=== PATIENT | female | born 1945 | race African-American/Black ===

== ENCOUNTER → 2020-06-09 17:52 | Outpatient (CLI) | payer OTHER, SELFPAY ==
--- NOTE | ~2020-06-09 | MM_ITS ---
EXAMINATION: MM screening [facility] HISTORY: Screening TECHNIQUE: Craniocaudal and mediolateral oblique 3-D tomosynthesis images were obtained and synthetic 2-D images were generated. CAD analysis was submitted and interpreted. COMPARISON: Comparison to multiple prior studies sequentially, with oldest reviewed study dated 01/18. BREAST PARENCHYMAL COMPOSITION: There are scattered areas of fibroglandular density. FINDINGS: There is no evidence of suspicious mass, calcification, or architectural distortion to sugg est malignancy in either breast. There has been no suspicious interval change. IMPRESSION: 1. No mammographic evidence of malignancy. 2. Recommend routine screening mammography in one year. BI-RADS Category 1: Negative Reviewed, dictated and finalized at location B. R SWITCH OPERATOR
== END ==
PROVIDERS: PCP Family Medicine Adolescent Medicine; Visit Provider Nurse Practitioner
DX: Z12.31 Encounter for screening mammogram for malignant neoplasm of breast (principal)
CPT/HCPCS: 77063; 77067

== ENCOUNTER → 2021-09-30 09:02 | Outpatient (CLI) | payer OTHER, SELFPAY ==
--- NOTE | ~2021-09-30 | MM_ITS ---
EXAMINATION: MM screening [facility] HISTORY: Screening mammogram TECHNIQUE: Craniocaudal and mediolateral oblique 3-D tomosynthesis images were obtained and synthetic 2-D images were generated. CAD analysis was submitted and interpreted. COMPARISON: 06/09/2020, 03/28/2019, 03/01/2018 BREAST PARENCHYMAL COMPOSITION: The breasts are almost entirely fatty. FINDINGS: There is no suspicious mass, calcification, or architectural distortion to suggest malignan cy in either breast. There has been no suspicious interval change. IMPRESSION: 1. No mammographic evidence of malignancy. 2. Recommend routine screening mammography in one year. BI-RADS Category 1: Negative Reviewed, dictated and finalized at location A.
--- NOTE | ~2021-09-30 | DEXA_ITS ---
Bone Density Report Name: MARISOL MORALES Age: 75 Sex: Female Ethnicity: Black Date of : 1945 Indication: postmenopausal; screening for osteoporosis; height loss; Referring Provider: Briseida, Ruma Study: Bone densitometry was performed. Exam Date: September 30, 2021 Accession number: [id number] Bone Density: Region BMD T-score Z-score Classification AP Spine (L1, L2, L3) 1.643 5.7 7.3 Normal Femoral Neck (Left) 0.935 0.8 1.4 Normal Total Hip (Left) 1.202 2.1 2.3 Normal Femoral Neck (Right) 1.068 2.0 2.4 Normal Total Hip (Right) 1.163 1.8 2.1 Normal Total Hip Mean 1.183 2.0 2.2 Normal World Health Organization criteria for BMD impression classify patients as: Normal (T-score at or above -1.0), Osteopenia (T-score between -1.0 and -2.5), or Osteoporosis (T-score at or below -2.5). 10-year Fracture Risk: FRAX not reported because: All T-scores for Spine Total, Hip Total, Femoral Neck at or above -1.0 Previous Exams: Region Exam Age BMD T-score BMD Change BMD Change Date g/cm2 vs Baseline vs Previous AP Spine(L1, L2, L3) 09/30/2021 75 1.643 5.7 0.258 0.127* 02/16/2017 71 1.515 4.5 0.130 0.086 09/09/2012 66 1.429 3.7 0.044* 0.024* 10/12/2008 62 1.405 3.5 0.020 0.020 11/16/2004 58 1.385 3.3 Total Hip(Left) 09/30/2021 75 1.202 2.1 0.067 0.018 02/16/2017 71 1.183 2.0 0.048 0.065 09/09/2012 66 1.118 1.4 -0.016 -0.003 10/12/2008 62 1.121 1.5 -0.014 -0.014 11/16/2004 58 1.135 1.6 Total Hip(Right) 09/30/2021 75 1.163 1.8 0.095 0.059* 02/16/2017 71 1.104 1.3 0.035 0.052 09/09/2012 66 1.052 0.9 -0.017 -0.046* 10/12/2008 62 1.098 1.3 0.030* 0.030* 11/16/2004 58 1.068 1.0 *Denotes significance at 95% confidence level, LSC for AP Spine = 0.022 g/cm2, LSC for Total Hip = 0.027 g/cm2 Clinical Information Provided by Patient: Has used the following medications: Vitamin D, Calcium Patient maximum height was 67.0 Menopause Age: 48 No regular weight bearing exercise Does not regularly consume dairy products Drinks caffeinated beverages Onset of menses at age 13 Number of children 3 Impression: The patient has normal bone mass. No
== END ==
PROVIDERS: PCP Family Medicine Adolescent Medicine; Visit Provider Nurse Practitioner
DX: Z12.31 Encounter for screening mammogram for malignant neoplasm of breast (principal); Z78.0 Asymptomatic menopausal state
CPT/HCPCS: 77063; 77067; 77080

== ENCOUNTER → 2022-10-04 16:27 | Outpatient (CLI) | payer OTHER, SELFPAY ==
--- NOTE | ~2022-10-04 | MM_ITS ---
EXAMINATION: MM screening [facility] HISTORY: Screening TECHNIQUE: Craniocaudal and mediolateral oblique 3-D tomosynthesis images were obtained and synthetic 2-D images were generated. CAD analysis was submitted and interpreted. COMPARISON: Comparison to multiple prior studies sequentially, with oldest reviewed study dated 01/27. BREAST PARENCHYMAL COMPOSITION: The breasts are almost entirely fatty. FINDINGS: There is no evidence of suspicious mass, calcification, or architectural distortion to sugg est malignancy in either breast. There has been no suspicious interval change. IMPRESSION: 1. No mammographic evidence of malignancy. 2. Recommend routine screening mammography in one year. BI-RADS Category 1: Negative Reviewed, dictated and finalized at location A.
== END ==
PROVIDERS: PCP Family Medicine Adolescent Medicine; Visit Provider Nurse Practitioner
DX: Z12.31 Encounter for screening mammogram for malignant neoplasm of breast (principal)
CPT/HCPCS: 77063; 77067

== ENCOUNTER 2023-05-03 04:33 | Emergency (ER) | payer OTHER, SELFPAY ==
--- NOTE | ~2023-05-03 | CT_ITS ---
EXAMINATION: CT abd pelvis lumbar wo con DATE: 05/03/2023 06:27 INDICATION: Left flank pain. TECHNIQUE: Computed tomography (CT) of the abdomen and pelvis and lumbar spine was performed without intravenous contrast. Automated exposure control and iterative reconstruction technique were employed . The dose-length product was 1449.08 mGy-cm. COMPARISON: CT abdomen and pelvis 06/05/2018 FINDINGS: CT ABDOMEN AND PELVIS: The visualized portions of the lung bases demonstrate mild atelectasis. No ple ural effusion. The heart size is normal. There are coronary artery calcifications. No pericardial eff usion. There are cysts in the liver measuring up to 16 mm. There are changes of cholecystectomy. The spleen, pancreas, adrenal glands, and kidneys are normal. There is no urolithiasis. There are bilater al inguinal hernias containing fat. There is diverticulosis of the colon. There is fat stranding jeffrey cent to the sigmoid colon. The appendix is normal. There is a small sliding hiatal hernia. There is a small volume of pelvic ascites. There are are small calcified uterine fibroids. There are no patholo gically enlarged lymph nodes. CT LUMBAR SPINE: Bone alignment is normal. Vertebral body heights are normal. There is mildly decreas ed disc height at L1-L2, L2-L3, and L3-L4 and severely decreased disc height at L4-L5 and L5-S1. The following disc levels are specifically discussed: L1-L2: The disc is bulging. There is severe bilateral facet joint osteoarthritis. There is mild bilat eral neural foraminal stenosis. There is mild central canal stenosis. L2-L3: The disc is bulging. There is severe bilateral facet joint osteoarthritis. There is moderate b ilateral neural foraminal stenosis. There is severe central canal stenosis. L3-L4: The disc is bulging. There is severe bilateral facet joint osteoarthritis. There is moderate b ilateral neural foraminal stenosis. There is moderate central canal stenosis. L4-L5: The disc is bulging. There is severe bilateral facet joint osteoarthritis. There is moderate b ilateral neural foraminal stenosis. There is severe central canal stenosis. L5-S1: The disc is bulging. There is severe bilateral facet joint osteoarthritis. There is moderate b ilateral neural foraminal stenosis. There is mild central canal stenosis. IMPRESSION: 1. No urolithiasis. 2. Mild fat stranding adjacent to the sigmoid colon, which may be epiploic appendagitis or acute dive rticulitis. 3. Small volume of ascites. 4. Severe lumbar spondylosis. Reviewed, dictated and finalized at location E. IMPRESSION: 1. No urolithiasis. 2. Mild fat stranding adjacent to the sigmoid colon, which may be epiploic appe ndagitis or acute diverticulitis. 3. Small volume of ascites. 4. Severe lumbar spondylosis.
[2023-05-03 04:42] VITALS: BP 132/78; PULSE 102; RESP 22; TEMP 37.1; O2SAT 99
--- NOTE | 2023-05-03 05:55 | ED.BACK ---
HPI - Back Pain/Injury General Chief Complaint: Back Pain/Injury <Lee Melchor DO - Last Filed: 05/03/23 07:54> Stated Complaint: back pain <Lee Melchor DO - Last Filed: 05/03/23 07:54> Time Seen by Provider: 05/03/23 04:58 <Lee Melchor DO - Last Filed: 05/03/23 07:54> Source: patient <Lee Melchor DO - Last Filed: 05/03/23 07:54> Limitations: no limitations <Lee Melchor DO - Last Filed: 05/03/23 07:54> History of Present Illness HPI Narrative: Patient is a 77-year-old female present to the emergency department complaining of left lower back pain. Patient states that she had a mechanical fall trying to get into her bed Saturday and fell onto her right side and developed left lower back pain its been aching ever since. Patient denies radiation of the pain. Patient denies history of this pain in the past. Patient notes that she does have chronic lower back pain but is on both sides and this is a different type of pain. Patient states that she has been taking her home muscle relaxers without any significant relief. Patient denies history of cancer, weight loss, fever, history of IV drug use, numbness, weakness, urinary incontinence, stool incontinence. Patient denies dysuria, hematuria, urinary frequency, urinary urgency, chest pain, shortness of breath. Patient admits to some nasal congestion for the past 4 days with a slightly productive cough. Patient has not noticed anything making her left lower back pain better or worse and notes that this is causing her to lose sleep now. <Lee Melchor DO - Last Filed: 05/03/23 07:54> Related Data Home Medications: Home Medications Medication Instructions Recorded Confirmed acyclovir 400 mg tablet 400 mg PO BID 07/24/21 07/23/22 <Lee Melchor DO - Last Filed: 05/03/23 07:54> Allergies/Adverse Reactions: Allergies Allergy/AdvReac Type Severity Reaction Status Date / Time Penicillins AdvReac Intermediate yeast Verified 07/23/22 10:33 infections TETRAMYCIN AdvReac Unknown NAUSEA AND Uncoded 07/23/22 10:33 VOMITING <Lee Melchor DO - Last Filed: 05/03/23 07:54> Review of Systems Review of Systems: A 10 system review of systems was completed on the patient and is negative except for what is stated in the HPI. Nursing and ancillary documentation was reviewed. <Lee Melchor DO - Last Filed: 05/03/23 07:54> [facility] Past Medical History Medical History: Medical History Normal colonoscopy 09/22 Repeat 10/02 <Lee Melchor DO - Last Filed: 05/03/23 07:54> Surgical History Surgical History: Surgical History H/O section History of cholecystectomy History of shoulder surgery left History of total knee arthroplasty bilateral, left 05/25 <Lee Melchor DO - Last Filed: 05/03/23 07:54> Family History Family History: Family History (Updated 07/24/21 @ 10:35 by Janice Loera MA) Sibling Diabetes mellitus Mother Hypertension <Lee Melchor DO - Last Filed: 05/03/23 07:54> Social History Social History: Social History (Updated 07/24/21 @ 10:35 by Janice Loera MA) Smoking status: Never smoker Second hand tobacco smoke exposure: No Alcohol intake: never Substance use: never Substance use type: does not use Living arrangements: with family Occupation/Education: retired Gender identity (if verbalized by the patient): Female Sexual Orientation (if Verbalized by the Patient): Straight or Heterosexual Spiritual care concerns: No Agree to blood products: Yes <Lee Melchor DO - Last Filed: 05/03/23 07:54> Comments At time of signature, I have reviewed and agree with nursing past medical, surgical, social and family history unless otherwise noted. Please see t
[2023-05-03] MEDS: traMADol HCL (*CRX) 50 MG TABLET PO (06:14)
[2023-05-03] MEDS: diazePAM (*CRX) 5 MG TABLET PO (06:14)
[2023-05-03 06:57] LABS: Basophils Percent Auto 0.3 % (0.2-1.2); Eosinophils Absolute Auto 0.1 K/mm3 (0-0.3); Hematocrit 41.8 % (37.0-47.0); Hemoglobin 12.2 g/dL (12.0-15.0); Immature Granulocyte Absolute 0.02 K/mm3 (0.00-0.031); Immature Granulocyte Percent A 0.3 % (0-0.5); Lymphocytes Absolute Auto 1.99 K/mm3 (0.9-3.2); Lymphocytes Percent Auto 31.6 % (18.3-44.2); Mean Corpuscular HGB Conc 29.2 g/dl (32-36); Mean Corpuscular Hemoglobin 25.3 pg (26-34); Mean Corpuscular Volume 86.7 fl (80-100); Mean Platelet Volume 10.5 fl (7.4-10.4); Monocytes Absolute Auto 0.5 K/mm3 (0.1-0.6); Monocytes Percent Auto 7.2 % (2.6-8.5); Neutrophils Absolute Auto 3.8 K/mm3 (1.3-6.7); Neutrophils Percent Auto 59.6 % (45.5-73.1); Platelet Count Result 224 k/mm3 (150-375); Red Blood Count 4.82 M/mm3 (4.2-5.4); White Blood Count 6.3 K/mm3 (4.5-10.0)
--- NOTE | 2023-05-03 06:58 | PC.NURSE ---
Report to BENY Han
[2023-05-03 07:06] LABS: Alanine Aminotransferase 13 U/L (6-35); Albumin Level 4.3 g/dL (3.5-5.1); Alkaline Phosphatase 107 U/L (38-126); Anion Gap 5 mmol/L (8-16); Aspartate Amino Transferase 17 U/L (14-36); Bilirubin,Total 0.5 mg/dL (0.2-1.3); Blood Urea Nitrogen 17 mg/dL (7-17); Calcium 9.1 mg/dL (8.4-10.2); Carbon Dioxide 32 mmol/L (22-30); Chloride 103 mmol/L (98-107); Creatine Kinase 81 U/L (30-135); Estimated Glomerular Filt Rate 53; Glucose 144 mg/dL (65-110); Lipase 32 U/L (23-300); Potassium 4.1 mmol/L (3.4-5.0); Sodium 140 mmol/L (137-145)
[2023-05-03 07:28] LABS: Hypochromasia 1+ (NORMAL); Platelet Estimate Adequate (Adequate)
[2023-05-03 07:29] LABS: Schistocytes None Seen (NORMAL)
[2023-05-03 07:44] LABS: Influenza A QL RT-PCR Negative (Negative); Influenza B QL RT-PCR Negative (Negative); SARS-CoV-2 RNA PCR Negative (Negative)
== END 2023-05-03 09:19 | disposition home or self-care (01) ==
PROVIDERS: Student in an Organized Health Care Education/Training Program; Emergency Provider Preventive Medicine Aerospace Medicine; PCP Family Medicine Adolescent Medicine
DX: S39.012A Strain of muscle, fascia and tendon of lower back, initial encounter (principal); K57.32 Diverticulitis of large intestine without perforation or abscess without bleeding; Z20.822 Contact with and (suspected) exposure to COVID-19; W06.XXXA Fall from bed, initial encounter
CPT/HCPCS: 36415; 72131; 74176; 80053; 82550; 83690; 85025; 87636; 99284; A9270

== ENCOUNTER 2023-06-07 14:26 | Emergency (ER) | payer OTHER, SELFPAY ==
--- NOTE | ~2023-06-07 | CT_ITS ---
EXAMINATION: CT abdomen pelvis w con DATE: 06/07/2023 19:51 INDICATION: Vaginal bleeding and lower pelvic pain TECHNIQUE: Computed tomography (CT) of the abdomen and pelvis was performed with 100 mL Omnipaque-350 intravenous contrast. Automated exposure control and iterative reconstruction technique were employe d. The dose-length product was 1281.07 mGy-cm. COMPARISON: 05/03/2023 FINDINGS: Mild atelectasis in the bilateral lower lungs. Heart size is normal. No pericardial or pleural effusi on. Small sliding-type hiatal hernia. Again seen are multiple fluid attenuation hepatic cysts the lar gest at the dome measuring up to 2.0 cm. Mild central intrahepatic biliary ductal dilation which is w ithin normal limits post cholecystectomy with surgical clips the gallbladder fossa. Spleen, pancreas, bilateral adrenal glands and left kidney are normal. 1.3 cm right renal cyst. There is irregular wal l thickening at the tip the cecum near the appendiceal orifice with mild stranding around the tip the cecum. The appendix does not appear dilated and there is no periappendiceal inflammatory stranding. The wall thickening appears new since the reported recent prior study which would favor an infectious /inflammatory etiology over malignancy. Coarse calcification at the uterine fundus likely related to a degenerated uterine fibroid. There is a 3.3 x 2.1 x 2.6 cm soft tissue density lesion centrally wit hin the region of the cervix, unclear within the endocervical canal or at the base of the vaginal vau lt and unclear whether this represents a solid soft tissue or potentially blood/clot. Bladder is norm al. No free intraperitoneal gas or fluid. No pathologically enlarged abdominal or pelvic lymphadenopa thy. Bilateral fat-containing inguinal hernias. Severe lower lumbar spondylosis with moderate spondyl osis in the cephalad lumbar and lower thoracic spine. IMPRESSION: 1. 3.3 x 2.1 x 2.6 cm soft tissue density lesion identified within the endocervical canal are at the base of the vaginal vault which could represent either soft tissue ossification setting of malignancy or blood/clot. Recommend correlation with pelvic exam. 2. Wall thickening and mild surrounding from trace stranding at the tip the cecum near the orifice of the normal-appearing appendix. This appears new since the relatively recent prior study which argues against malignancy with differential including focal colitis/typhlitis or less likely acute appendic itis.. 3. Chronic coarse calcific location within the uterine fundus likely related to degenerated uterine f ibroid. 4. Small sliding-type hiatal hernia. Reviewed, dictated and finalized at location A. RVISOR CHLORINE LIQUEFACTION IMPRESSION: 1. 3.3 x 2.1 x 2.6 cm soft tissue density lesion identified within the endocerv ical canal are at the base of the vaginal vault which could represent either so ft tissue ossification setting of malignancy or blood/clot. Recommend correlati on with pelvic exam. 2. Wall thickening and mild surrounding from trace stranding at the tip the cec um near the orifice of the normal-appearing appendix. This appears new since th e relatively recent prior study which argues against malignancy with differenti al including focal colitis/typhlitis or less likely acute appendicitis.. 3. Chronic coarse calcific location within the uterine fundus likely related to degenerated uterine fibroid. 4. Small sliding-type hiatal hernia.
[2023-06-07 14:39] VITALS: BP 168/61; PULSE 99; RESP 16; TEMP 36.8; O2SAT 100
[2023-06-07 15:03] LABS: Basophils Percent Auto 0.2 % (0.2-1.2); Eosinophils Absolute Auto 0.2 K/mm3 (0-0.3); Eosinophils Percent Auto 2.7 % (0-4.4); Hematocrit 40.5 % (37.0-47.0); Immature Granulocyte Absolute 0.01 K/mm3 (0.00-0.031); Immature Granulocyte Percent A 0.2 % (0-0.5); Lymphocytes Absolute Auto 1.62 K/mm3 (0.9-3.2); Lymphocytes Percent Auto 29.1 % (18.3-44.2); Mean Corpuscular HGB Conc 29.6 g/dl (32-36); Mean Corpuscular Hemoglobin 25.8 pg (26-34); Mean Corpuscular Volume 87.1 fl (80-100); Mean Platelet Volume 10.4 fl (7.4-10.4); Monocytes Absolute Auto 0.4 K/mm3 (0.1-0.6); Monocytes Percent Auto 6.5 % (2.6-8.5); Neutrophils Absolute Auto 3.4 K/mm3 (1.3-6.7); Neutrophils Percent Auto 61.3 % (45.5-73.1); Platelet Count Result 239 k/mm3 (150-375); Red Blood Count 4.65 M/mm3 (4.2-5.4); Red Cell Distribution Width 15.3 % (11.5-14.5); White Blood Count 5.6 K/mm3 (4.5-10.0)
[2023-06-07 15:17] LABS: Alanine Aminotransferase 14 U/L (6-35); Albumin Level 4.1 g/dL (3.5-5.1); Alkaline Phosphatase 121 U/L (38-126); Anion Gap 8 mmol/L (8-16); Aspartate Amino Transferase 20 U/L (14-36); Bilirubin,Total 0.4 mg/dL (0.2-1.3); Blood Urea Nitrogen 21 mg/dL (7-17); Carbon Dioxide 32 mmol/L (22-30); Chloride 101 mmol/L (98-107); Estimated Glomerular Filt Rate 59; Glucose 116 mg/dL (65-110); Potassium 3.8 mmol/L (3.4-5.0); Sodium 141 mmol/L (137-145)
[2023-06-07 15:41] LABS: Hypochromasia 1+ (NORMAL); Platelet Estimate Adequate (Adequate); Schistocytes None Seen (NORMAL)
[2023-06-07 15:42] LABS: Anisocytosis 1+ (NORMAL)
[2023-06-07 17:37] VITALS: BP 176/81; PULSE 84; RESP 20; O2SAT 99
--- NOTE | 2023-06-07 19:13 | ED.FEMALEGU ---
HPI - Female Genitourinary General Chief complaint: Vaginal Bleeding Stated complaint: vaginal bleeding Time Seen by Provider: 06/07/23 19:10 Source: patient Limitations: no limitations History of Present Illness HPI Narrative: This is a 77-year-old postmenopausal female who presents with vaginal bleeding. She initially states the bleeding started at 1:00 p.m. today however she does note that over the past week she did have some dark vaginal discharge occasionally while she was in [place]. She states when bleeding started this afternoon she did use a total of 4 panty liners. She denies any odor. She states it was initially without pain but she is having some low pelvic pain currently. She denies any hematuria, urinary urgency, urinary frequency, or dysuria. Her last bowel movement was yesterday she denies any blood, diarrhea, or constipation. No fevers. She was last seen here in April 2023 diagnosed at that time with diverticulitis versus epiploic appendagitis. Related Data Allergies Allergy/AdvReac Type Severity Reaction Status Date / Time Penicillins AdvReac Intermediate yeast Verified 06/07/23 19:29 infections TETRAMYCIN AdvReac Unknown NAUSEA AND Uncoded 06/07/23 14:26 VOMITING PMFSH Past Medical History Medical History Normal colonoscopy 09/22 Repeat 10/02 Surgical History Surgical History H/O section History of cholecystectomy History of shoulder surgery left History of total knee arthroplasty bilateral, left 05/25 Family History Family History (Updated 07/24/21 @ 10:35 by Janice Loera MA) Sibling Diabetes mellitus Mother Hypertension Social History Social History (Updated 07/24/21 @ 10:35 by Janice Loera MA) Smoking status: Never smoker Second hand tobacco smoke exposure: No Alcohol intake: never Substance use: never Substance use type: does not use Living arrangements: with family Occupation/Education: retired Gender identity (if verbalized by the patient): Female Sexual Orientation (if Verbalized by the Patient): Straight or Heterosexual Spiritual care concerns: No Agree to blood products: Yes Exam Narrative: GENERAL: Well-appearing, well-nourished, and in no acute distress. HEAD: Normocephalic, atraumatic. EYES: EOMI, no photophobia. ENT: Nares clear, no rhinorrhea or epistaxis. Gross auditory acuity intact. NECK: Supple. No meningismus CHEST:Speaking in full sentences. No respiratory distress. HEART: Regular rate and rhythm. Warm and well perfused.. ABDOMEN: Soft, nondistended. Mild low pelvic/suprapubic tenderness to palpation without rigidity or guarding. : External genitalia unremarkable without evidence of rash or lesion though there is dark brown discharge at the introitus. Dark discharge also pooled in vaginal vault in fornices. Speculum exam with unremarkable vaginal wall mucosa except for small area anteriorly which is unclear whether is it cervical os versus fistula; however once swabbed, no further leakage appreciated at this site so possible superficial tear. Bimanual exam without cervical motion tenderness, adnexal tenderness or any masses appreciated. EXTREMITIES: Normal range of motion. SKIN: Warm, dry, no rash. NEURO: No focal deficits. Alert and oriented x3. PSYCH: Normal mood and affect. Course Vital Signs Vital signs: Vital Signs Temperature 98.3 F 06/07/23 14:39 Pulse Rate 99 06/07/23 14:39 Respiratory Rate 16 06/07/23 14:39 Blood Pressure 168/61 H 06/07/23 14:39 Pulse Oximetry 100 06/07/23 14:39 Oxygen Delivery Room Air 06/07/23 14:39 Temperature 98.3 F 06/07/23 14:39 Pulse Rate 84 06/07/23 17:37 Respiratory Rate 20 06/07/23 17:37 Blood Pressure 176/81 H 06/07/23 17:37 Pulse Oximetry 99 06/07/23 17:37 Oxygen Delivery Room Air 06/07
[2023-06-07] MEDS: ACETAMINOPHEN 500 MG TABLET 1000 MG PO (19:30)
--- NOTE | 2023-06-07 19:54 | PC.NURSE ---
This RN attempted to call ultrasound at 1953, which states ultrasound is unavailable. information security analyst notified. This RN made a second attempt at 1954 and was unsuccessful again. information security analyst notified.
[2023-06-07 21:41] LABS: Amorphous Sediment Urine Present; Appearance Urine Cloudy (Clear); Bacteria Urine None Seen /hpf; Bilirubin Urine Negative (Negative); Blood Urine 3+ (Negative); Color Urine Yellow (Yellow); Glucose Urine UA Negative (Negative); Ketones Urine Negative (Negative); Leukocyte Esterase Ur Trace LEU/UL (Negative); Nitrate Urine Negative (Negative); Non Pathogenic Casts 0-2; Protein Urine Trace mg/dL (Negative); Specific Grav Ur 1.053 (1.001-1.035); Squamous Epithelial Cell Urine None seen /hpf (Few); Urobilinogen Urine 0.2 mg/dL (<2.0); WBC Urine 0-5 /hpf
[2023-06-07 21:42] LABS: Add Urine Microscopic? YES
== END 2023-06-07 22:08 | disposition home or self-care (01) ==
PROVIDERS: Emergency Provider Student in an Organized Health Care Education/Training Program; PCP Family Medicine Adolescent Medicine
DX: N93.9 Abnormal uterine and vaginal bleeding, unspecified (principal); Z96.653 Presence of artificial knee joint, bilateral; Z90.49 Acquired absence of other specified parts of digestive tract; K44.9 Diaphragmatic hernia without obstruction or gangrene; R93.89 Abnormal findings on diagnostic imaging of other specified body structures; R93.3 Abnormal findings on diagnostic imaging of other parts of digestive tract
CPT/HCPCS: 36415; 74177; 80053; 81001; 85025; 99284; A9270; Q9967

== ENCOUNTER → 2023-06-18 10:11 | Outpatient (CLI) | payer OTHER, SELFPAY ==
--- NOTE | ~2023-06-18 | US_ITS ---
Pelvic ultrasound. Clinical History: Postmenopausal bleeding Technique: Realtime transabdominal and transvaginal scanning of the pelvis was performed. Color flow Doppler and Doppler spectral analysis were performed. Findings: The uterus is anteverted, and measures 7.9 x 3.8 x 4.5 cm. The endometrial stripe has a th ickness of 4 mm. There is a probable 1.4 cm calcified fibroid. Additional probable 1.3 cm posterior w all intramural fibroid present. Neither ovary seen. No other adnexal mass seen There is small amount of free fluid in the cul de sac. Impression: Small uterine fibroids, as above. No abnormal endometrial thickening. Small amount of free fluid. Reviewed, dictated and finalized at location M. BLE PROCESSOR Impression: Small uterine fibroids, as above. No abnormal endometrial thickening. Small amount of free fluid.
== END ==
PROVIDERS: PCP Family Medicine Adolescent Medicine; Visit Provider Obstetrics & Gynecology Gynecology
DX: N95.0 Postmenopausal bleeding (principal); D25.9 Leiomyoma of uterus, unspecified
CPT/HCPCS: 76830

== ENCOUNTER 2023-08-13 11:13 | Outpatient (CLI) | payer OTHER, SELFPAY ==
[2023-08-13 12:04] LABS: Prothrombin Time 13.1 Seconds (11.1-14.7)
[2023-08-13 12:05] LABS: Partial Thromboplastin Time 25.6 SECONDS (22.3-36.8)
[2023-08-13 12:09] LABS: Anion Gap 7 mmol/L (8-16); Blood Urea Nitrogen 19 mg/dL (7-17); Calcium 8.9 mg/dL (8.4-10.2); Carbon Dioxide 32 mmol/L (22-30); Chloride 102 mmol/L (98-107); Estimated Glomerular Filt Rate 53; Glucose 116 mg/dL (65-110); Sodium 141 mmol/L (137-145)
== END 2023-08-13 11:14 | disposition home or self-care (01) ==
LOC: ANHSURGERY 11:17
PROVIDERS: Anesthesiology; PCP Family Medicine Adolescent Medicine; Visit Provider Obstetrics & Gynecology Gynecology
DX: N18.31 Chronic kidney disease, stage 3a (principal); E11.22 Type 2 diabetes mellitus with diabetic chronic kidney disease; Z01.818 Encounter for other preprocedural examination
CPT/HCPCS: 36415; 80048; 85610; 85730

== ENCOUNTER 2023-08-19 02:37 | Day surgery (SDC) | payer OTHER, SELFPAY ==
[2023-08-06 13:35] VITALS: BMI 37.2
--- NOTE | 2023-08-06 13:42 | PC.NURSE ---
PRE-OP INSTRUCTIONS, PLEASE READ CAREFULLY Report to the Outpatient Waiting Room, entrance under the green pavilion located off [facility], at time _0700_ on date _08/19/23_. Planned Procedure Time: _0900_. Time changes happen often and if your time is changed the preop area will call you the afternoon before. - You and your visitor will be asked to self-screen and do not enter if you have any COVID symptoms. - A mask is optional within the hospital at this time. Patients may have clear liquids (water, carbonated beverages, clear teas, apple juice) until 3 hours prior to surgery (0600 AM) with a maximum of 20 ounces. - No food from midnight until time of surgery Take the following medications with a SIP of water the morning of surgery: _CYCLOBENZAPRINE, TRAMADOL IF NEEDED_ DO NOT STOP ANY OF YOUR OTHER PRESCRIPTION MEDICATIONS PRIOR TO SURGERY ?EXCEPT THE FOLLOWING Medications to discontinue per physician ___NONE____, Date to take last dose Please no make-up, nail spanish, hairspray, perfume, deodorant, or body powder the day of surgery. No jewelry (including any body piercings) or valuables the day of surgery, leave them at home. Please take a shower or bath the night before, or the morning of, surgery with an antibacterial soap. Wear comfortable, loose fitting clothing. - Jewelry must be removed prior to entering the operating room. Rings and piercings that are not removed may be cut off. - The hospital will not accept responsibility for valuables. - Please leave all valuables, including medications, at home the day of surgery. If you are going home after surgery, a licensed ups driver must drive you home. - NO public transportation without another adult if you receive anesthesia. - We recommend that an adult stay with you for 24 hours following discharge. - We also recommend that you do not drive, make important decision, drink alcoholic beverages, or take any drugs that were not prescribed by your health care provider for at least 24 hours after your discharge time. Follow any additional instructions given to you from your surgeon. If you or anyone in your household have experienced Covid symptoms in the past week, please notify your surgeon or the nurse liaison at the phone number below for possible testing. Telephone instructions given to _PATIENT_and asked if any additional questions and then verbalized understanding. Patient advised to call surgeon office or pre surgery nurse liaison [phone] if any additional questions.
--- NOTE | 2023-08-19 07:39 | WPDHPUPDATE1 ---
History and Physical Update Update Date/Time: 08/19/23 07:39 History and Physical has been reviewed, including an updated exam of the patient. There are NO changes in the patient's condition. Risks, benefits, and alternatives have been discussed and questions answered. Patient agrees to proceed with procedure.
--- NOTE | 2023-08-19 07:39 | PM.HPGS ---
History of Present Illness History of Present Illness Consent: Risks, benefits, and alternatives have been discussed and questions answered. Patient agrees to proceed with procedure. Chief complaint: post menopausal bleeding Narrative: Sonu Aguirre is a 77 year old female with possible postmenopausal bleeding. Patient underwent pelvic ultrasound which revealed thickened endometrium. It was recommended to undergo D&C hysteroscopy. Risks of infection, bleeding, perforation, and possible pathology are discussed. Patient voices understanding and agrees to proceed. Review of Systems Review of Systems: not repeated day of surgery; patient states no changes in status PMFSH Past Medical History Medical History (Updated 08/19/23 @ 08:07 by Pita Rivera MD) Chronic kidney disease, stage 3a HTN (hypertension) (normal spontaneous vaginal delivery) x2 Pure hypercholesterolemia, unspecified Type 2 diabetes mellitus with diabetic chronic kidney disease Surgical History Surgical History (Updated 08/19/23 @ 08:07 by Pita Rivera MD) H/O section History of cholecystectomy History of shoulder surgery left History of total knee arthroplasty bilateral, right 04/17; left 05/25 Family History Family History (Updated 07/24/21 @ 10:35 by Janice Loera MA) Sibling Diabetes mellitus Mother Hypertension Social History Social History (Updated 07/24/21 @ 10:35 by Janice Loera MA) Smoking status: Never smoker Second hand tobacco smoke exposure: No Alcohol intake: never Substance use: never Substance use type: does not use Living arrangements: with family Occupation/Education: retired Gender identity (if verbalized by the patient): Female Sexual Orientation (if Verbalized by the Patient): Straight or Heterosexual Spiritual care concerns: No Agree to blood products: Yes Meds Home Medications and Allergies Home Medications Medication Instructions Recorded Confirmed Type trazodone 100 mg tablet 200 mg PO QHS #180 tabs 02/28/23 08/06/23 Rx tramadol 50 mg tablet See Rx Instructions PO QID PRN 04/29/23 08/06/23 Rx pain #90 tabs metformin 500 mg tablet,extended 500 mg PO DAILY #90 tabs 05/04/23 08/06/23 Rx release 24 hr acyclovir 400 mg tablet 400 mg PO TID #15 tabs 05/20/23 08/06/23 Rx simvastatin 40 mg tablet See Rx Instructions .Route 05/26/23 08/06/23 Rx .COMPLEX #90 tabs cyclobenzaprine 10 mg tablet See Rx Instructions .Route 06/24/23 08/06/23 Rx .COMPLEX #60 tabs lisinopril 20 See Rx Instructions .Route 07/15/23 08/06/23 Rx mg-hydrochlorothiazide 25 mg tablet .COMPLEX #90 tabs Allergies Allergy/AdvReac Type Severity Reaction Status Date / Time Penicillins AdvReac Intermediate yeast Verified 08/06/23 13:33 infections TETRAMYCIN AdvReac Unknown NAUSEA AND Uncoded 08/06/23 13:33 VOMITING Exam Const: General: healthy appearing and alert Orientation/consciousness: patient oriented x3 Resp: Effort & Inspection: normal respiratory effort : External Female Exam: normal external appearance Speculum Exam - Vagina: normal appearance of the vagina and normal vaginal discharge Speculum Exam - Cervix: normal appearance of the cervix Bimanual exam- vagina & uterus: uterine size normal and consistency normal Bimanual Exam- Adnexa, other: normal adnexae and No adnexal tenderness Neuro: General: patient oriented x3 Assessment and Plan Assessment and plan (1) Postmenopausal vaginal bleeding: Code(s): N95.0 - Postmenopausal bleeding Status: Acute Assessment and Plan: Plan to proceed with D&C hysteroscopy
[2023-08-19 07:48] LABS: Glucose Point of Care 113 mg/dl (65-105)
[2023-08-19 07:50] VITALS: BP 143/66; PULSE 87; RESP 14; TEMP 37; O2SAT 100
[2023-08-19] MEDS: ACETAMINOPHEN 500 MG TABLET 1000 MG PO (07:50)
[2023-08-19] MEDS: LACTATED RINGERS 1,000 ML 30 ML IV CONT (07:50)
--- NOTE | 2023-08-19 08:08 | WPDANESEPPF ---
Anes - Initial Pre Proc Eval Procedure: Operation Date: 08/19/23 09:00 Proposed Procedures p Hysteroscopy, Dilation and Curettage - Pita Rivera MD Date/Time: 08/19/23 08:08 Surgeon: Pita Rivera MD Pre Op Diagnosis: post menopausal bleeding Patient Data Age: 77 Gender: F Height: 1.68 m Weight: 104.54 kg Allergies Allergy/AdvReac Type Severity Reaction Status Date / Time Penicillins AdvReac Intermediate yeast Verified 08/06/23 13:33 infections TETRAMYCIN AdvReac Unknown NAUSEA AND Uncoded 08/06/23 13:33 VOMITING Home Medications Medication Instructions Recorded Confirmed Type trazodone 100 mg tablet 200 mg PO QHS #180 tabs 02/28/23 08/06/23 Rx tramadol 50 mg tablet See Rx Instructions PO QID PRN 04/29/23 08/06/23 Rx pain #90 tabs metformin 500 mg tablet,extended 500 mg PO DAILY #90 tabs 05/04/23 08/06/23 Rx release 24 hr acyclovir 400 mg tablet 400 mg PO TID #15 tabs 05/20/23 08/06/23 Rx simvastatin 40 mg tablet See Rx Instructions .Route 05/26/23 08/06/23 Rx .COMPLEX #90 tabs cyclobenzaprine 10 mg tablet See Rx Instructions .Route 06/24/23 08/06/23 Rx .COMPLEX #60 tabs lisinopril 20 See Rx Instructions .Route 07/15/23 08/06/23 Rx mg-hydrochlorothiazide 25 mg tablet .COMPLEX #90 tabs Laboratory Tests 08/19/23 07:45 POC Capillary Glucose 113 H mg/dl (65-105) Patient hx anesthesia problems: none Family hx anesthesia problems: none Results Review: All pre-operative results and documents have been reviewed as part of the pre-operative evaluation. [facility] Past Medical History Medical History (Updated 08/19/23 @ 08:07 by Pita Rivera MD) Chronic kidney disease, stage 3a HTN (hypertension) (normal spontaneous vaginal delivery) x2 Pure hypercholesterolemia, unspecified Type 2 diabetes mellitus with diabetic chronic kidney disease Surgical History Surgical History (Updated 08/19/23 @ 08:07 by Pita Rivera MD) H/O section History of cholecystectomy History of shoulder surgery left History of total knee arthroplasty bilateral, right 04/17; left 05/25 Family History Family History (Updated 07/24/21 @ 10:35 by Janice Loera MA) Sibling Diabetes mellitus Mother Hypertension Social History Social History (Updated 07/24/21 @ 10:35 by Janice Loera MA) Smoking status: Never smoker Second hand tobacco smoke exposure: No Alcohol intake: never Substance use: never Substance use type: does not use Living arrangements: with family Occupation/Education: retired Gender identity (if verbalized by the patient): Female Sexual Orientation (if Verbalized by the Patient): Straight or Heterosexual Spiritual care concerns: No Agree to blood products: Yes Anes - Eval Final PreProcedure Day of Procedure 08/19/23 08:08 Patient weight: obese Heart: regular rate and rhythm Lungs: clear to auscultation Airway: Mallampati scale class III Neurological: alert and oriented Last oral intake: >/= 8 hours ASA classification: III Emergent: no Anesthetic plan: proceed Anesthesia type and monitoring: general GIVS and standard monitoring Results Review: All pre-operative results and documents have been reviewed as part of the pre-operative evaluation. Informed Consent: The patient's anesthetic plan and its attendant risks and benefits were discussed with the patient/family/POA. Questions were solicited and answers provided to the satisfaction of the patient/family/POA.
[2023-08-19] MEDS: KETOROLAC 15 MG/ML VIAL (*BKC) IV PUSH (09:21)
--- NOTE | 2023-08-19 09:45 | W.PM.PROC2 ---
Procedure Note - Detailed Date of Procedure 08/19/23 Pre-op Diagnosis post menopausal bleeding Post-op Diagnosis Same Procedure Performed D&C hysteroscopy Surgeon Pita Rivera MD Anesthesia MAC Findings external and internal os are stenotic; endometrium was grossly atrophic; endometrium has several outpouchings consistent with adenomyosis Description of Procedure The patient was taken to the operating room and placed under anesthesia in the dorsal lithotomy position. She was prepped and draped in the usual sterile fashion. [place] speculum was placed in the vagina and the cervix grasped on the anterior lip with a tenaculum. The external os is noted to be stenotic and the sound does not pass. The for Hegar dilator passes the external os but will not pass the internal os. The os Finders were used and the internal os is able to be passed. The hysteroscope was then placed and through hydrodissection the cavity is able to be entered. The above-stated findings were noted. The hysteroscope was removed. The sound is placed and unable to be passed. The Hegar dilators were used and the cervix dilated to a 5. The sound was then able to be placed in the uterus sounds to 9cm. The OO sharp curette is used to curette the endometrium until a good uterine cry was noted in all areas. Minimal material was obtained consistent with the atrophic appearance. All instruments are removed. Patient was awakened from anesthesia and taken to recovery in stable condition. Sponge, needle, and instrument counts are correct per the OR staff. Estimated Blood Loss 5 Drains No Packing No Pathology Yes ( Endometrial curettings) Complications No immediate complications Condition Stable Disposition PACU
[2023-08-19 09:48] VITALS: BP 130/49; PULSE 82; RESP 16; O2SAT 97
[2023-08-19 09:55] LABS: Glucose Point of Care 122 mg/dl (65-105)
[2023-08-19 10:15] VITALS: BP 147/57; PULSE 81
[2023-08-19 10:45] VITALS: BP 153/73; PULSE 82
== END 2023-08-19 11:01 | disposition home or self-care (01) ==
PROVIDERS: PCP Family Medicine Adolescent Medicine; Visit Provider Obstetrics & Gynecology Gynecology
PROC: 0U5B8ZZ Destruction of Endometrium, Via Natural or Artificial Opening Endoscopic (ICD-10-PCS; CPT 58563; principal; 2023-08-19 09:00)
DX: N85.8 Other specified noninflammatory disorders of uterus (principal); N95.0 Postmenopausal bleeding; E11.22 Type 2 diabetes mellitus with diabetic chronic kidney disease; N18.31 Chronic kidney disease, stage 3a; E78.00 Pure hypercholesterolemia, unspecified; E66.9 Obesity, unspecified; Z68.36 Body mass index [BMI] 36.0-36.9, adult; Z79.891 Long term (current) use of opiate analgesic; Z79.84 Long term (current) use of oral hypoglycemic drugs; Z98.890 Other specified postprocedural states; Z90.49 Acquired absence of other specified parts of digestive tract
CPT/HCPCS: 58558; 36415; 80048; 82948; 85610; 85730; 88305; A9270; J1100; J1885; J2405; J2704; J3010; J7120

== ENCOUNTER 2023-10-30 09:58 | Outpatient (CLI) | payer OTHER, SELFPAY ==
--- NOTE | ~2023-10-30 | MM_ITS ---
EXAMINATION: MM screening juan BI w [facility] HISTORY: Screening mammogram TECHNIQUE: Craniocaudal and mediolateral oblique 3-D tomosynthesis images were obtained and synthetic 2-D images were generated. CAD analysis was submitted and interpreted. COMPARISON: 10/04/2022, 09/30/2021 bilateral screening mammogram examinations BREAST PARENCHYMAL COMPOSITION: The breasts are almost entirely fatty. FINDINGS: There is no evidence of suspicious mass, calcification, or architectural distortion to sugg est malignancy in either breast. There has been no suspicious interval change. IMPRESSION: 1. No mammographic evidence of malignancy. 2. Recommend routine screening mammography in one year. BI-RADS Category 1: Negative Reviewed, dictated and finalized at location A.
== END 2023-10-30 09:59 ==
PROVIDERS: PCP Family Medicine Adolescent Medicine; Visit Provider Nurse Practitioner
DX: Z12.31 Encounter for screening mammogram for malignant neoplasm of breast (principal)
CPT/HCPCS: 77063; 77067

== ENCOUNTER 2025-01-05 14:29 | Outpatient (CLI) | payer OTHER, SELFPAY ==
--- NOTE | ~2025-01-05 | MM_ITS ---
EXAMINATION: MM screening juan BI w [facility] HISTORY: Screening mammogram TECHNIQUE: Craniocaudal and mediolateral oblique 3-D tomosynthesis images were obtained and synthetic 2-D images were generated. CAD analysis was submitted and interpreted. COMPARISON: 10/30/2023, 10/04/2022, 09/30/2021, 06/09/2020 BREAST PARENCHYMAL COMPOSITION:Not Dense. The breasts are almost entirely fatty FINDINGS: No suspicious mass, calcification, or architectural distortion are identified in either filiberto ast to suggest malignancy. There has been no suspicious interval change. IMPRESSION: No mammographic evidence of malignancy. Recommend routine screening mammography in one year. BI-RADS Category 1: Negative Reviewed, dictated and finalized at location .
== END 2025-01-05 14:30 | disposition home or self-care (01) ==
PROVIDERS: PCP Family Medicine Adolescent Medicine; Visit Provider Obstetrics & Gynecology Gynecology
DX: Z12.31 Encounter for screening mammogram for malignant neoplasm of breast (principal)
CPT/HCPCS: 77063; 77067

== ENCOUNTER 2025-04-13 12:54 | Outpatient (CLI) | payer OTHER, SELFPAY ==
--- NOTE | ~2025-04-13 | DEXA_ITS ---
Bone Density Report Name: MARISOL MORALES Age: 79 Sex: Female Ethnicity: Black Date of : 1945 Indication: postmenopausal; screening for osteoporosis; height loss; Referring Provider: GHISLAINE KRAMER Study: Bone densitometry was performed. Exam Date: April 13, 2025 Accession number: [id number] Bone Density: Region BMD T-score Z-score Classification AP Spine(L1-L4) 1.785 6.7 8.6 Normal Femoral Neck (Left) 0.958 1.0 1.7 Normal Total Hip (Left) 1.205 2.2 2.5 Normal Femoral Neck (Right) 1.019 1.5 2.1 Normal Total Hip (Right) 1.136 1.6 2.1 Normal Total Hip Mean 1.171 1.9 2.3 Normal World Health Organization criteria for BMD impression classify patients as: Normal (T-score at or above -1.0), Osteopenia (T-score between -1.0 and -2.5), or Osteoporosis (T-score at or below -2.5). 10-year Fracture Risk: FRAX not reported because: All T-scores for Spine Total, Hip Total, Femoral Neck at or above -1.0 Previous Exams: -- Region Exam Age BMD T-score BMD Change BMD Change Date g/cm2 vs Baseline vs Previous -- AP Spine (L1-L4) 04/13/2025 79 1.785 6.7 28.8%* 12.0%# 02/16/2017 71 1.593 5.0 15.0%# 10.9%# 09/09/2012 66 1.437 3.5 3.7%* 0.5% 10/12/2008 62 1.430 3.5 3.2%* 3.2%* 11/16/2004 58 1.386 3.1 Total Hip(Left) 04/13/2025 79 1.205 2.2 6.2%* 0.3%# 09/30/2021 75 1.202 2.1 5.9%# 1.5% 02/16/2017 71 1.183 2.0 4.3%# 5.8%# 09/09/2012 66 1.118 1.4 -1.4% -0.2% 10/12/2008 62 1.121 1.5 -1.2% -1.2% 11/16/2004 58 1.135 1.6 Total Hip(Right) 04/13/2025 79 1.136 1.6 6.4%* -2.3%# 09/30/2021 75 1.163 1.8 8.9%# 5.4%* 02/16/2017 71 1.104 1.3 3.3%# 5.0%# 09/09/2012 66 1.052 0.9 -1.6% -4.2%* 10/12/2008 62 1.098 1.3 2.8%* 2.8%* 11/16/2004 58 1.068 1.0 -- *Denotes significance at 95% confidence level, LSC for AP Spine = 0.022 g/cm2, LSC for Total Hip = 0.027 g/cm2 # Denotes dissimilar scan types or analysis methods Clinical Information Provided by Patient: Has used the following medications: Vitamin D, Calcium Patient maximum height was 67 Menopause Age: 48 No regular weight bearing exercise Does not regularly consume dairy products Onset of menses at age 13 Number of children 3 Impression: The patient has normal bone mass. Unable to evaluate interval change due to the use of different scan modes. Discussion: BONE DENSITY IS ABOVE THE MINIMUM DESIRABLE LEVEL AT ALL SKELETAL SITES TESTED. This patient?s bone mineral density is above the minimum desirable level (T-score -1.0 or better) at all sites measured. The patient should follow a healthful lifestyle (good nutrition with adequate calcium and vitamin D, and appropriate weight-bearing exercise). Follow-Up: Consider repeating this study in 5 years or sooner if there is some new clinical indication. Reported by: MARLEN on 04/13/2025 1:22:00 PM. Reviewed, dictated and finalized at location A.
== END 2025-04-13 12:55 | disposition home or self-care (01) ==
PROVIDERS: PCP Family Medicine Adolescent Medicine
DX: Z78.0 Asymptomatic menopausal state (principal)
CPT/HCPCS: 77080